=== PATIENT | male | born 1960 | race Caucasian/White ===

== ENCOUNTER 2016-08-29 15:27 | Emergency (ER) | payer BC ==
[2016-08-29] MEDS ORDERED: KETOROLAC TROMETHAMINE 30 MG/ML VIAL ONE (16:24)
[2016-08-29 16:28] LABS: URINE MUCUS NONE SEEN (Up to 25%); URINE SQUAMOUS EPITHELIAL CELL NONE SEEN (<= 15/hpf)
[2016-08-29 16:48] LABS: URINE APPEARANCE CLEAR; URINE BACTERIA NONE SEEN (<10/hpf); URINE BILIRUBIN NEGATIVE (NEGATIVE); URINE BLOOD 250 Ery/uL (3+) (NEGATIVE); URINE COLOR YELLOW; URINE GLUCOSE NORMAL (NEGATIVE); URINE KETONE NEGATIVE (NEGATIVE); URINE LEUKOCYTE ESTERASE 25 WBC/uL (1+) (NEGATIVE); URINE NITRITE NEGATIVE (NEGATIVE); URINE PROTEIN 300mg/dL (3+) (NEG - TRACE); URINE RBC 50-100/hpf (0-5/hpf); URINE SPECIFIC GRAVITY 1.025 (0.001-1.035); URINE UROBILINOGEN 0.2mg/dL (Normal) (NEG-1mg/dL)
--- NOTE | 2016-08-29 17:15 | ER NURSING DOCUMENTATION ---
Nurse's Notes [facility] Name:Juan Pablo Che Age:56 yrs Sex:Male :1960 Arrival Date:08/29/2016 Time:15:27 Bed3 Private MD: Diagnosis:Ureterolithiasis - Renal Colic;UTI (Cystitis) Presentation: 08/29 15:33 Presenting complaint: Patient states: had a urethral stent removed yesterday, now has bw2 increased pain and cramping. pt states he has not been taking his pain medication because he does not want to become constipated. Transition of care: patient was not received from another setting of care. 15:33 Acuity: AJAY 3 bw2 15:33 Method Of Arrival: Walk In 2 Triage Assessment: 15:34 General: Appears in no apparent distress, uncomfortable, Behavior is agitated. Pain: bw2 Complains of pain in bladder Pain currently is 8 out of 10 on a pain scale. Respiratory: No deficits noted. Historical: - Allergies: No known drug Allergies; - Tetanus: < 10 years. - Ebola Screening: : Patient negative for fever greater than or equal to 101.5 degrees Fahrenheit, and additional compatible Ebola Virus Disease symptoms. Patient denies exposure to infectious person. Patient denies travel to an Ebola-affected area in the 21 days before illness onset. No symptoms or risks identified at this time. . - Immunization history: Flu Vaccine < 1 year. - Social history: Smoking status: Patient uses tobacco products, current every day smoker. Screenin:36 Infectious Disease Risk None. Abuse screen: Denies threats or abuse. Denies injuries bw2 from another. Nutritional screening: No deficits noted. Assessment: 15:36 See Triage Assessment done by same RN. bw2 Vital Signs: 15:35 BP 141 / 80; Pulse 91; Resp 19; Temp 97.8; Pulse Ox 96% on R/A; Weight 77.11 kg; Height bw2 5 ft. 9 in. (175.26 cm); Pain 8/10; 17:09 BP 164 / 66; Pulse 78; Resp 18; Pulse Ox 97% on R/A; Pain 3/10; bw2 15:35 Body Mass Index 25.10 (77.11 kg, 175.26 cm) bw2 ED Course: 15:28 Patient arrived in ED. ds 15:33 Hue Bojorquez is Primary Nurse. bw2 15:34 Triage completed. bw2 15:36 Valuables Remains with patient. bw2 15:47 Caleb Horton MD is Attending Physician. tl1 Administered Medications: 16:22 Drug: Toradol 30 mg; Route: IM; Site: right vastus lateralis; bw2 16:38 Follow up: Response: No adverse reaction; Pain is decreased bw2 Point of Care Testing: Urine Dip: 16:23 pH: 6.0; ; Specific [place]: 1.025; Ketones: Negative; Glucose: Negative; Protein: bw2 Positive (+++); Leukocytes: Positive; Nitrite: Negative ; Blood: Large (+++); Bilirubin: Negative ; Urobilinogen: Normal Outcome: 17:01 Discharge ordered by . tl1 17:09 Discharged to home ambulatory. bw2 17:09 Condition: good 17:09 Discharge Assessment: Patient awake, alert and oriented x 3. No cognitive and/or functional deficits noted. Patient verbalized understanding of disposition instructions. 17:09 Discharge instructions given to patient, Instructed on discharge instructions, follow up and referral plans. medication usage, Demonstrated understanding of instructions, medications, Prescriptions given X 1. 17:14 Patient left the ED. bw2 0608 11:36 Discharge F/U Call: Spoke with: patient. other: Name: pt is doing well he has started st the abx and is taking the pain meds given to him when his stent was removed. Pt has no questions or concerns. Signatures: Alexandria Rao RN RN st [facility], [place], Reg Reg ds Caleb Horton MD MD tl1 Hue Bojorquez bw2
--- NOTE | 2016-08-31 17:15 | ER PHYSICIAN DOCUMENTATION ---
Physician Documentation [facility] Name:Juan Pablo Che Age:56 yrs Sex:Male :1960 Arrival Date:08/29/2016 Time:15:27 Bed3 Private MD: Caleb Diaz Disposition: 08/29 18:00 Chart complete. tl1 Disposition: 08/29/16 17:01 Discharged to Home/Self Care. Impression: Ureterolithiasis - Renal Colic, UTI (Cystitis). - Condition is Good. - Discharge Instructions: BLADDER INFECTION, Male (Adult). - Prescriptions for Cipro 500 mg Oral Tablet - take 1 tablet by ORAL route every 12 hours for 7 days; 14 tablet. - Medical Reconciliation form form. - Follow up: Private Physician; When: 4- 6 days; Reason: Recheck today's complaints, Continuance of care. - Problem is an ongoing problem. - Symptoms have improved. - Notes: OK TO TAKE YOUR MELOXICAM AND FLOMAX FOR PAIN, ALONG WITH YOUR OXYCODONE HPI: 15:40 This 56 yrs old Male presents to ER via Walk In with complaints of Urinary tl1 Problem. 15:40 The patient presents with flank pain, described as crampy, intermittent, sharp, tl1 stabbing, of the left mid back. Onset: The symptom(s)/episode began/occurred suddenly, yesterday. He had a left ureteral stent removed yesterday after a ureteroscopy for kidney stones about a week ago. Yesterday he had some ureteral spasms which are much worse today. No dysuria or other UTI symptoms. No f/c/s. No hematuria. No change in bowel habits.. Historical: - Allergies: No known drug Allergies; - Tetanus: < 10 years. - Ebola Screening: : Patient negative for fever greater than or equal to 101.5 degrees Fahrenheit, and additional compatible Ebola Virus Disease symptoms. Patient denies exposure to infectious person. Patient denies travel to an Ebola-affected area in the 21 days before illness onset. No symptoms or risks identified at this time. . - Immunization history: Flu Vaccine < 1 year. - Social history: Smoking status: Patient uses tobacco products, current every day smoker. ROS: 15:40 : Positive for flank pain. tl1 15:40 All other systems are negative. Exam: 15:40 Constitutional: This is a well developed, well nourished patient who is awake, alert, tl1 and in no acute distress. Head/Face: Normocephalic, atraumatic. Eyes: Pupils equal round and reactive to light, extra-ocular motions intact. Lids and lashes normal. Conjunctiva and sclera are non-icteric and not injected. Cornea within normal limits. Periorbital areas with no swelling, redness, or edema. ENT: Nares patent. No nasal discharge, no septal abnormalities noted. Tympanic membranes are normal and external auditory canals are clear. Oropharynx with no redness, swelling, or masses, exudates, or evidence of obstruction, uvula midline. Mucous membranes moist. Cardiovascular: Regular rate and rhythm with a normal S1 and S2. No gallops, murmurs, or rubs. Normal PMI, no JVD. No pulse deficits. 15:40 Respiratory: Lungs have equal breath sounds bilaterally, clear to auscultation and tl1 percussion. No rales, rhonchi or wheezes noted. No increased work of breathing, no retractions or nasal flaring. Vital Signs: 15:35 BP 141 / 80; Pulse 91; Resp 19; Temp 97.8; Pulse Ox 96% on R/A; Weight 77.11 kg; Height bw2 5 ft. 9 in. (175.26 cm); Pain 8/10; 17:09 BP 164 / 66; Pulse 78; Resp 18; Pulse Ox 97% on R/A; Pain 3/10; bw2 15:35 Body Mass Index 25.10 (77.11 kg, 175.26 cm) bw2 MDM: 15:47 Patient medically screened. tl1 17:10 Data reviewed: vital signs, nurses notes, lab test result(s), urinalysis, hematuria, tl1 pyuria, and as a result, I will discharge patient. Counseling: I had a detailed discussion with the patient and/or guardian regarding: the historical points, exam findings, and any diagnostic results supporting the discharge/admit diagnosis, lab results, radiology results, the need for outpatient follow up, for a recheck, a urologist. Medication response: The patient's symptoms have improved, Response to treatment: the patient's symptoms have markedly improved after treatment, and as a result, I will discharge patient. 08/29 16:50 Order name: UA W/ MICRO -CULTURE IF IND; Complete Time: 17:05 EDMS 08/30 09:14 Order name: URINE CULTURE EDMS 08/31 10:06 Order name: GRAM POSITIVE COMBO 34 EDMS Dispensed Medications: 16:22 Drug: Toradol 30 mg; Route: IM; Site: right vastus lateralis; bw2 16:38 Follow up: Response: No adverse reaction; Pain is decreased bw2 Point of Care Testing: Urine Dip: 16:23 pH: 6.0; ; Specific [place]: 1.025; Ketones: Negative; Glucose: Negative; Protein: bw2 Positive (+++); Leukocytes: Positive; Nitrite: Negative ; Blood: Large (+++); Bilirubin: Negative ; Urobilinogen: Normal Signatures: Caleb Horton MD MD tl1 Hue Bojorquez bw2
== END 2016-08-29 17:15 | disposition home or self-care (01) ==
LOC: ER 15:27
DX: N20.1 Calculus of ureter (principal); N23 Unspecified renal colic; N39.0 Urinary tract infection, site not specified; B95.2 Enterococcus as the cause of diseases classified elsewhere; Z98.890 Other specified postprocedural states; Z87.442 Personal history of urinary calculi
CPT/HCPCS: 81001; 87077; 87086; 87186; 96372; 99283; J1885